=== PATIENT | female | born 1980 | race African-American/Black ===

== ENCOUNTER 2017-02-18 11:03 | Emergency (ER) | payer OTHER ==
[~2017-02-18] VITALS: Ht 170.2 cm; Wt 49.4 kg
[2017-02-18] MEDS ORDERED: Ketorolac 30mg Inj IV ONE (11:30)
--- NOTE | 2017-02-18 11:31 | Emergency Room Report ---
History of Present Illness General Chief Complaint: Abdominal Pain Source: Patient Present Illness HPI Patient presents with lower abdominal pain Points mainly to the left lower abdomen Patient is on her menstrual cycle currently There is a report in triage regarding vomiting and diarrhea however the patient denies any diarrhea Denies any fevers or chills denies any chest pain or shortness of breath pain is 7/10 left lower pelvic region as any vaginal discharge Denies any dysuria frequency Allergies: Coded Allergies: No Known Allergies (Unverified , 02/18/17) Patient History Past Medical History: see triage record Pertinent Family History: none Last Menstrual Period: 01/16/17 Now: No Reviewed Nursing Documentation: PMH: Agreed, PSxH: Agreed Nursing Documentation-PMH Past Medical History: No History, Except For Review of Systems All Other Systems: negative except mentioned in HPI Physical Exam Vital Signs Date Time Temp Pulse Resp B/P Pulse Ox O2 Delivery O2 Flow Rate FiO2 02/18/17 11:07 98.1 84 16 111/68 100 Room Air Sp02 EP Interpretation: reviewed, normal General Appearance: well appearing, no apparent distress Head: normocephalic, atraumatic Eyes: bilateral eye EOMI, bilateral eye PERRL ENT: hearing grossly normal, normal pharynx, TMs + canals normal, uvula midline Neck: full range of motion, supple, no meningismus, no bony tend Respiratory: lungs clear, normal breath sounds, no rhonchi, no respiratory distress, no retraction, no accessory muscle use Cardiovascular #1: normal peripheral pulses, regular rate, rhythm, no edema, no gallop, no JVD, no murmur Gastrointestinal: normal bowel sounds, soft, no mass, no organomegaly, non- distended, no guarding, no hernia, no pulsatile mass, no rebound, tenderness - Left lower abdomen, upper pelvic area Genitourinary: no CVA tenderness Musculoskeletal: normal inspection Neurologic: oriented x3, responsive, cargo service agent III-XII nml as tested, motor strength/ tone normal, sensory intact Psychiatric: mood/affect normal Skin: normal color, no rash, warm/dry, palpation normal Lymphatic: normal inspection, no adenopathy Medical Decision Making Diagnostic Impression: Primary Impression: Ruptured ovarian cyst Additional Impression: Abdominal pain ER Course With the patient's history and examination, multiple differentials considered, including but not limited to , ectopic , ovarian torsion, gastritis, cholecystitis, pancreatitis, appendicitis Patient's blood work is appropriate Ultrasound shows evidence of a likely ruptured ovarian cyst Given the appearance patient will require close [employer] followup With likely repeat ultrasound Patient's discomfort is very low down essentially suprapubic area And at this time the patient is pain-free I did not feel that CAT scan imaging for status was appropriate at this time and the patient will have close outpatient reevaluation next 2 days with primary physician Labs Test 02/18/17 11:11 02/18/17 11:43 Urine Color Pale yellow Urine Appearance Slightly cloudy Urine pH 7 (4.5-8.0) Urine Specific Minter 1.015 (1.005-1.035) Urine Protein Negative (NEGATIVE) Urine Glucose (UA) Negative (NEGATIVE) Urine Ketones Negative (NEGATIVE) Urine Occult Blood 3+ (NEGATIVE) Urine Nitrite Negative (NEGATIVE) Urine Bilirubin Negative (NEGATIVE) Urine Urobilinogen 4 MG/DL (0.0-1.0) Urine Leukocyte Esterase Negative (NEGATIVE) Urine RBC 2-4 /HPF (0 - 2) Urine WBC 0-2 /HPF (0 - 2) Urine Squamous Epithelial Cells Few /LPF (NONE/OCC) Urine Amorphous Sediment Moderate /LPF (NONE) Urine Bacteria Few /HPF (NONE) Urine HCG, Qualitative Negative White Blood Count 4.4 K/UL (4.8-10.8) Red Blood Count 4.84 M/UL (4.20-5.40) Hemoglobin 10.7 G/DL (12.0-16.0) Hematocrit 35.0 % (37.0-47.0) Mean Corpuscular Volume 72 FL (80-99) Mean Corpuscular Hemoglobin 22.0 PG (27.0-31.0) Mean Corpuscular Hemoglobin Concent 30.4 G/DL (32.0-36.0) Red Cell Distribution Width 15.6 % (11.6-14.8) Platelet Count 192 K/UL (150-450) Mean Platelet Volume 9.4 FL (6.5-10.1) Neutrophils (%) (Auto) 56.0 % (45.0-75.0) Lymphocytes (%) (Auto) 30.8 % (20.0-45.0) Monocytes (%) (Auto) 10.5 % (1.0-10.0) Eosinophils (%) (Auto) 1.6 % (0.0-3.0) Basophils (%) (Auto) 1.1 % (0.0-2.0) Sodium Level 141 mEQ/L (135-145) Potassium Level 3.8 mEQ/L (3.4-4.9) Chloride Level 101 mEQ/L (98-107) Carbon Dioxide Level 27 mEQ/L (20-30) Anion Gap 13 (5-15) Blood Urea Nitrogen 8 mg/dL (7-23) Creatinine 0.7 mg/dL (0.5-0.9) Estimat Glomerular Filtration Rate > 60 mL/min (>60) Glucose Level 73 mg/dL (74-106) Calcium Level 9.3 mg/dL (8.6-10.2) CT/MRI/US Diagnostic Results CT/MRI/US Diagnostic Results : Impression pelvic ultrasound:IMPRESSION: 7.5 cm left adnexal mass most likely hemorrhagic physiologic ovarian cyst virtually replacing the ovary. No evidence of torsion. 3.3 cm right adnexal mass compatible with hemorrhagic/septated physiologic ovarian cyst Retroverted uterus with 2 cm anterior intramural/subserosal fibroid Prominent endometrial echo complex likely reflects phase of menstrual cycle. Followup ultrasound recommended in 6 week Last Vital Signs Date Time Temp Pulse Resp B/P Pulse Ox O2 Delivery O2 Flow Rate FiO2 02/18/17 11:07 98.1 84 16 111/68 100 Room Air Status: improved Disposition: HOME, SELF-CARE Condition: Improved Scripts Ibuprofen* (MOTRIN*) 600 Mg Tablet 600 MG ORAL Q8H Y for For Pain, #20 TAB 0 Refills Prov: GINGER LEWIS D.O. 02/18/17 Additional Instructions: Patient is provided with the discharge instructions notified to follow up with primary doctor in the next 2-3 days otherwise return to the er with any worsening symptoms. Please note that this report is being documented using [employer] technology. This can lead to erroneous entry secondary to incorrect interpretation by the dictating instrument. GINGER LEWIS D.O. February 18, 2017 11:31
[2017-02-18 12:03] LABS: BASOPHILS % (AUTO) 1.1 % (0.0-2.0); EOSINOPHILS % (AUTO) 1.6 % (0.0-3.0); LYMPHOCYTES % (AUTO) 30.8 % (20.0-45.0); MEAN CORPUSCULAR HGB CONC 30.4 G/DL (32.0-36.0); MEAN CORPUSCULAR VOLUME 72 FL (80-99); MEAN PLATELET VOLUME 9.4 FL (6.5-10.1); MONOCYTES % (AUTO) 10.5 % (1.0-10.0); PLATELET COUNT 192 K/UL (150-450); RED BLOOD COUNT 4.84 M/UL (4.20-5.40); RED CELL DISTRIBUTION WIDTH 15.6 % (11.6-14.8); WHITE BLOOD COUNT 4.4 K/UL (4.8-10.8)
[2017-02-18 12:12] LABS: APPEARANCE,URINE SLIGHTLY CLOUDY; KETONES,URINE NEGATIVE (NEGATIVE); LEUKOCYTE ESTERASE ,URINE NEGATIVE (NEGATIVE); NITRITE,URINE NEGATIVE (NEGATIVE); PH,URINE 7 (4.5-8.0); PROTEIN,URINE NEGATIVE (NEGATIVE); UROBILINOGEN,URINE 4 MG/DL (0.0-1.0)
[2017-02-18 12:15] LABS: ANION GAP 13 (5-15); CALCIUM 9.3 mg/dL (8.6-10.2); CARBON DIOXIDE 27 mEQ/L (20-30); CHLORIDE 101 mEQ/L (98-107); CREATININE 0.7 mg/dL (0.5-0.9); GLOMERULAR FILTRATION RATE > 60 mL/min (>60); HEMOLYSIS 3; POTASSIUM 3.8 mEQ/L (3.4-4.9); SODIUM 141 mEQ/L (135-145)
[2017-02-18 12:28] LABS: AMORPHOUS SEDIMENT,UR MODERATE /LPF; BACTERIA,URINE FEW /HPF; SQUAMOUS EPITHELIAL CELL,UR FEW /LPF (NONE/OCC); WBC,URINE 0-2 /HPF (0 - 2)
[2017-02-18] MEDS ORDERED: IBUPROFEN600 MG ORAL (13:36)
[2017-02-18 14:20] VITALS: BP 111/68
--- NOTE | 2017-02-18 14:39 | Diagnostic Imaging Report ---
Indications: Pelvic pain for 2 days, LMP 01/16/2017 Technique: Transabdominal and transvaginal real-time grayscale and duplex Doppler imaging of the pelvis was performed. Findings: Comparison: None Retroverted uterus measures 8.2 x 6.8 x 5.3cm. It demonstrates a circumscribed hypoechoic solid mass in its peripheral anterior myometrium, approximately 2 cm in length. The endometrial complex measures 18 mm in diameter. It is unremarkable in appearance without obvious focal abnormality. Cervix unremarkable. No free fluid is present in the cul-de-sac. Right ovary measures 2.6 x 2.3 x 1.5 cm. 3.3 cm circumscribed anechoic mass with internal septations emanates exophytically from one pole. Duplex Doppler imaging demonstrates normal blood flow. No extra-ovarian abnormality is seen. Left adnexal region is occupied by a 7.4 x 7.5 x 5.7 cm circumscribed mass with a thin sharply defined capsule, moderate diffuse internal echogenicity, and increased through transmission. There is suggestion of a small amount of ovarian tissue at its margin. Separate ovary not identified.. Duplex Doppler imaging demonstrates no blood flow intrinsic to the mass but some at its periphery. No extra-ovarian abnormality is seen. IMPRESSION: 7.5 cm left adnexal mass most likely hemorrhagic physiologic ovarian cyst virtually replacing the ovary. No evidence of torsion. 3.3 cm right adnexal mass compatible with hemorrhagic/septated physiologic ovarian cyst Retroverted uterus with 2 cm anterior intramural/subserosal fibroid Prominent endometrial echo complex likely reflects phase of menstrual cycle. Followup ultrasound recommended in 6 weeks.
== END 2017-02-18 14:23 | disposition home or self-care (01) ==
LOC: EMR 11:33
DX: N83.201 Unspecified ovarian cyst, right side (principal); D25.1 Intramural leiomyoma of uterus; D25.2 Subserosal leiomyoma of uterus
CPT/HCPCS: 36415; 76856; 80048; 81003; 81025; 82962; 85025; 96374; 99284; J1885

== ENCOUNTER 2017-09-27 09:07 | Emergency (ER) | payer MEDICAID, OTHER ==
[~2017-09-27] VITALS: Ht 170.2 cm; Wt 51.7 kg
[~2017-09-27 09:07] MED LIST: IBUPROFEN600 MG ORAL
[2017-09-27 09:22] VITALS: BP 115/68
[2017-09-27] MEDS ORDERED: Morphine Sulfate 4mg/ml Inj IVP ONE (09:30)
[2017-09-27 10:21] LABS: BASOPHILS % (AUTO) 1.5 % (0.0-2.0); EOSINOPHILS % (AUTO) 3.4 % (0.0-3.0); LYMPHOCYTES % (AUTO) 34.6 % (20.0-45.0); MEAN CORPUSCULAR HEMOGLOBIN 27.9 PG (27.0-31.0); MEAN CORPUSCULAR HGB CONC 32.5 G/DL (32.0-36.0); MEAN CORPUSCULAR VOLUME 86 FL (80-99); MEAN PLATELET VOLUME 9.7 FL (6.5-10.1); MONOCYTES % (AUTO) 8.2 % (1.0-10.0); NEUTROPHILS % (AUTO) 52.3 % (45.0-75.0); PLATELET COUNT 195 K/UL (150-450); RED BLOOD COUNT 5.19 M/UL (4.20-5.40); RED CELL DISTRIBUTION WIDTH 13.7 % (11.6-14.8); WHITE BLOOD COUNT 4.7 K/UL (4.8-10.8)
[2017-09-27 10:35] LABS: ANION GAP 6 mmol/L (5-15); CALCIUM 9.2 MG/DL (8.5-10.1); CARBON DIOXIDE 27 MMOL/L (21-32); CHLORIDE 105 MMOL/L (98-107); CREATININE 0.6 MG/DL (0.55-1.30); GLOMERULAR FILTRATION RATE > 60 mL/min (>60); POTASSIUM 4.7 MMOL/L (3.5-5.1); SODIUM 138 MMOL/L (136-145)
[2017-09-27 10:50] LABS: ALANINE AMINOTRANSFERASE 36 U/L (12-78); ASPARTATE AMINO TRANSFERASE 34 U/L (15-37); CKMB 1.6 NG/ML (0.0-3.6); TOTAL PROTEIN 8.2 G/DL (6.4-8.2)
[2017-09-27] MEDS ORDERED: IBUPROFEN600 MG ORAL (11:11)
[2017-09-27] MEDS ORDERED: ACETAMINOPHEN-1 EAC1 ORAL (11:11)
--- NOTE | 2017-09-27 11:48 | Emergency Room Report ---
History of Present Illness General Chief Complaint: Chest Pain Source: Patient Present Illness HPI 37-year-old female presents to ED complaining of chest pain. Started 2 weeks ago. midsternal, sharp, 8/10, nonradiating. Worse with deep breaths. Denies any cardiac history. Denies smoking or drug use. Patient states she has been lifting/moving heavy objects in her apartment. No other aggravating or relieving factors. Denies any other associated symptom Allergies: Coded Allergies: No Known Allergies (Unverified , 02/18/17) Patient History Past Medical History: none Past Surgical History: none Pertinent Family History: none Social History: Denies: smoking, alcohol use, drug use Last Menstrual Period: 09/14/17 Now: No : 1 Para: 1 Immunizations: UTD Reviewed Nursing Documentation: PMH: Agreed, PSxH: Agreed Nursing Documentation-PMH Past Medical History: No History, Except For Hx Cardiac Problems: No - HEP B Review of Systems All Other Systems: negative except mentioned in HPI Physical Exam Vital Signs Date Time Temp Pulse Resp B/P (MAP) Pulse Ox O2 Delivery O2 Flow Rate FiO2 09/27/17 09:17 98.2 62 14 115/68 100 Room Air Sp02 EP Interpretation: reviewed, normal General Appearance: no apparent distress, alert, GCS 15, non-toxic Head: normocephalic Eyes: bilateral eye normal inspection, bilateral eye PERRL ENT: normal ENT inspection Neck: normal inspection Respiratory: lungs clear, normal breath sounds, speaking full sentences, other - reproducible chest wall pain Cardiovascular #1: regular rate, rhythm, no edema Gastrointestinal: normal bowel sounds, non tender, soft, non-distended, no guarding, no rebound Rectal: deferred Genitourinary: no CVA tenderness Musculoskeletal: normal inspection Neurologic: alert, oriented x3, responsive, motor strength/tone normal, sensory intact, speech normal Psychiatric: normal inspection Skin: normal inspection Lymphatic: normal inspection Medical Decision Making Diagnostic Impression: Primary Impression: Chest wall pain ER Course Hospital Course 37-year-old female presents ED complaining of reproducible chest wall pain Differential diagnoses include: Rib fracture, MS/unstable angina, contusion, muscle strain Clinical course Patient placed on stretcher. After initial history and physical I ordered labs , EKG, chest x-ray. morphine labs reviewed- all electrolytes normal, troponins negative, no leukocytosis, hemoglobin/hematocrit stable EKG - NSR, no acute ischemic changes interpreted by me Chest x-ray-no cardiomegaly, no rib fracture, no pneumothorax, no acute process clinical findings consistent with muscle strain/costochondritis. Reassurance given. I. I feel this is a highly complex case requiring extensive working including EKG/Rhythm strip, Xray/CT/US, Blood/urine lab work, repeat exams while in ED, and administration of strong opiates/narcotics for pain control, admission to hospital or close patient follow up. Diagnosis - chest wall pain Stable and discharged to home with prescription for Motrin, Tylenol #3. Instructed to followup with PMD. Return to ED if symptoms recur or worsen my chest wall pain shortness Labs Test 09/27/17 09:40 White Blood Count 4.7 K/UL (4.8-10.8) Red Blood Count 5.19 M/UL (4.20-5.40) Hemoglobin 14.5 G/DL (12.0-16.0) Hematocrit 44.6 % (37.0-47.0) Mean Corpuscular Volume 86 FL (80-99) Mean Corpuscular Hemoglobin 27.9 PG (27.0-31.0) Mean Corpuscular Hemoglobin Concent 32.5 G/DL (32.0-36.0) Red Cell Distribution Width 13.7 % (11.6-14.8) Platelet Count 195 K/UL (150-450) Mean Platelet Volume 9.7 FL (6.5-10.1) Neutrophils (%) (Auto) 52.3 % (45.0-75.0) Lymphocytes (%) (Auto) 34.6 % (20.0-45.0) Monocytes (%) (Auto) 8.2 % (1.0-10.0) Eosinophils (%) (Auto) 3.4 % (0.0-3.0) Basophils (%) (Auto) 1.5 % (0.0-2.0) Urine HCG, Qualitative Negative Sodium Level 138 MMOL/L (136-145) Potassium Level 4.7 MMOL/L (3.5-5.1) Chloride Level 105 MMOL/L (98-107) Carbon Dioxide Level 27 MMOL/L (21-32) Anion Gap 6 mmol/L (5-15) Blood Urea Nitrogen 11 mg/dL (7-18) Creatinine 0.6 MG/DL (0.55-1.30) Estimat Glomerular Filtration Rate > 60 mL/min (>60) Glucose Level 87 MG/DL (74-106) Calcium Level 9.2 MG/DL (8.5-10.1) Total Bilirubin 0.4 MG/DL (0.2-1.0) Aspartate Amino Transf (AST/SGOT) 34 U/L (15-37) Alanine Aminotransferase (ALT/SGPT) 36 U/L (12-78) Alkaline Phosphatase 59 U/L (46-116) Total Creatine Kinase 106 U/L (26-308) Creatine Kinase MB 1.6 NG/ML (0.0-3.6) Creatine Kinase MB Relative Index 1.5 Troponin I 0.000 ng/mL (0.000-0.056) Total Protein 8.2 G/DL (6.4-8.2) Albumin 4.1 G/DL (3.4-5.0) Globulin 4.1 g/dL Albumin/Globulin Ratio 1.0 (1.0-2.7) EKG Diagnostic Results Rate: normal Rhythm: NSR ST Segments: no acute changes ASA given to the pt in ED: No Rhythm Strip Diag. Results EP Interpretation: yes Rhythm: NSR, no PVC's, no ectopy Chest X-Ray Diagnostic Results Chest X-Ray Diagnostic Results : Chest X-Ray Ordered: Yes # of Views/Limited/Complete: 1 View Indication: Chest Pain EP Interpretation: Yes Interpretation: no consolidation, no effusion, no pneumothorax, no acute cardiopulmonary disease Impression: No acute disease Electronically Signed by: Electronically signed by Larry Olguin MD Last Vital Signs Date Time Temp Pulse Resp B/P (MAP) Pulse Ox O2 Delivery O2 Flow Rate FiO2 09/27/17 10:36 98.2 09/27/17 09:23 62 14 Room Air 09/27/17 09:22 115/68 100 Status: improved Disposition: HOME, SELF-CARE Condition: Stable Scripts Acetaminophen With Codeine (T#3) (TYLENOL #3 TAB*) Y Tab 1 TAB ORAL Q8H Y for For Pain, #20 TAB Prov: LARRY OLGUIN M.D. 09/27/17 Ibuprofen* (MOTRIN*) 600 Mg Tablet 600 MG ORAL Q8H Y for For Pain, #30 TAB 0 Refills Prov: LARRY OLGUIN M.D. 09/27/17 Patient Instructions: Chest Wall Pain, [id number] LARRY OLGUIN M.D. Sep 27, 2017 11:47
[2017-09-27 13:27] VITALS: BP 105/65
--- NOTE | 2017-09-28 10:53 | Diagnostic Imaging Report ---
Indication: Chest pain Technique: One view of the chest Comparison: none Findings: Lungs and pleural spaces are clear. Heart size is normal Impression: No acute process
--- NOTE | 2017-09-28 17:04 | Cardiology Report ---
APPROVED REPORT EKG Measurement Heart [id number] Normal sinus rhythm Normal ECG
== END 2017-09-27 12:00 | disposition home or self-care (01) ==
LOC: EMR 10:45
DX: R07.89 Other chest pain (principal)
CPT/HCPCS: 36415; 71010; 80053; 81025; 82550; 82553; 84484; 85025; 93005; 96374; 99284; J2270